=== PATIENT | male | born 1980 | race Two or more races ===

== ENCOUNTER 2020-08-23 17:57 | Emergency (ER) | payer MEDICAID, OTHER ==
[~2020-08-23] VITALS: Ht 144.8 cm; Wt 84.8 kg
[2020-08-23 18:01] VITALS: BP 120/72
== END 2020-08-23 19:13 | disposition home or self-care (01) ==
LOC: ER 17:57
DX: U07.1 COVID-19 (principal); E11.9 Type 2 diabetes mellitus without complications